=== PATIENT | male | born 1985 | race Caucasian/White ===

== ENCOUNTER 2016-05-29 08:44 | Inpatient (IN) | payer OTHER ==
[2016-05-14 15:04] VITALS: BMI 26.0
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
[~2016-05-29] VITALS: Ht 182.9 cm; Wt 86.4 kg
[2016-05-29] VITALS (7 sets, daily range): BP systolic 99–137; BP diastolic 62–93; PULSE 63–71; TEMP 36.3–36.8; O2SAT 97–100; Ht 182.9 cm; Wt 86.4 kg
[~2016-05-29 08:44] MED LIST: AMLO-110 PO; BUPIVACAINE 0.25% 30 ML VIAL ONE; CALC500C70 PO; FENTANYL CITRATE INJ 50 MCG/1 ML 2 ML VIAL ONE; LACTATED RINGER'S 1000ML 1,000 ML IV SCH; LIDOCAINE HCL 2% 2 ML VIAL (20MG/ML) ONE; MIDAZOLAM HCL 1 MG/ML 2ML VIAL ONE; ONDANSETRON INJ 2 MG/ML 2 ML VIAL ONE; PROPOFOL IV EMULSION 10 MG/ML 20 ML VIAL IV ONE
[2016-05-29] MEDS ORDERED: CEFAZOLIN IV 2,000 MG/60 ML D5W IV ONE (11:15)
[2016-05-29] MEDS ORDERED: NURSING VERBAL MED ORDER ONE (11:25)
--- NOTE | 2016-05-29 11:29 | History & Physical Bridge Note ---
H&P Re-Evaluation Bridge Note: I have examined the patient, reviewed the History & Physical and in the interval since the performance of the History & Physical I have noted the following changes of clinical significance: No changes noted
[2016-05-29] MEDS ORDERED: EpHEDrine SULFATE INJ 50 MG/ML AMP IV PRN (11:30)
[2016-05-29] MEDS ORDERED: ONDANSETRON INJ 2 MG/ML 2 ML VIAL IV PRN ×2 (11:30→15:00)
[2016-05-29] MEDS ORDERED: ATROPINE SULFATE 0.1 MG/ML 5ML SYR IV PRN (11:30)
[2016-05-29] MEDS ORDERED: EpHEDrine SULFATE 50MG/5ML SYR ONE (12:03)
[2016-05-29] MEDS ORDERED: PROPOFOL IV EMULSION 10 MG/ML 20 ML VIAL IV ONE (12:03)
[2016-05-29] MEDS ORDERED: FENTANYL CITRATE INJ 50 MCG/1 ML 2 ML VIAL ONE (12:37)
[2016-05-29] MEDS ORDERED: BACITRACIN 50,000 UNITS IR ONE (13:29)
[2016-05-29] MEDS: HYDROmorphone INJ 1 MG/ML SYR IV PRN ×6 (14:32→15:01)
--- NOTE | 2016-05-29 14:46 | [facility] Post Operative Brief Note ---
Immediate Operative Summary Operative Date May 29, 2016. Pre-Operative Diagnosis Left lower extremity contractures, both at the left knee and the left ankle, and poor circulation in left lower extremity distally, post-ischemic syndrome lower leg, Foot Drop Post-Operative Diagnosis Left lower extremity contractures, both at the left knee and the left ankle, and poor circulation in left lower extremity distally, post-ischemic syndrome lower leg, Foot Drop Procedure(s) Performed Left Knee Below Knee Amputation; Manipulation Under Anesthesia Left Knee Surgeon Dr. Dima Moreno Director Energy Surgeon(s) Esteban Johnson PA-C Estimated Blood Loss 25ml Findings See Dict Specimens A: Left lower leg Drains HV x 1 Anesthesia GLMA w/ femoral nerve block Complication(s) None Disposition Recovery Room / PACU
[2016-05-29] MEDS ORDERED: ACETAMINOPHEN 325 MG TAB PO PRN (15:00)
[2016-05-29] MEDS ORDERED: MAGNESIUM HYDROXIDE SUSP 30 ML UDC PO PRN (15:00)
[2016-05-29] MEDS ORDERED: ALUMINUM/MAGNESIUM/SIMETH (MAALOX MAX) 30 ML UDC PO PRN (15:00)
[2016-05-29] MEDS ORDERED: ZOLPIDEM TARTRATE 5 MG TAB PO PRN (15:00)
--- NOTE | 2016-05-29 15:15 | Anesthesiology Progress Note ---
Anesthesia Post Op Note Date & Time May 29, 2016 at 15:15 Vital Signs Pain Intensity: 6 Vital Signs Past 12 Hours Date Time Temp Pulse Resp B/P Pulse Ox O2 Delivery O2 Flow Rate FiO2 05/29/16 14:56 92 16 100 05/29/16 14:56 89 16 05/29/16 14:51 85 12 05/29/16 14:51 86 12 100 05/29/16 14:48 144/98 05/29/16 14:46 88 12 05/29/16 14:46 89 12 100 05/29/16 14:43 133/83 05/29/16 14:41 87 10 05/29/16 14:41 85 10 100 05/29/16 14:38 137/94 05/29/16 14:36 84 10 05/29/16 14:36 85 10 100 05/29/16 14:33 131/95 05/29/16 14:31 88 13 05/29/16 14:31 91 13 100 05/29/16 14:28 122/79 05/29/16 14:26 84 13 100 05/29/16 14:26 89 13 05/29/16 14:26 36.4 88 14 130/87 100 Mask 10 05/29/16 09:22 36.5 65 20 111/76 97 Room Air Notes Mental Status: alert / awake / arousable, participated in evaluation Pt Amnestic to Procedure: Yes Nausea / Vomiting: adequately controlled Pain: adequately controlled Airway Patency, RR, SpO2: stable & adequate BP & HR: stable & adequate Hydration State: stable & adequate Anesthetic Complications: no major complications apparent
[2016-05-29] MEDS: D5W AND 1/2NSS + 20MEQ KCL 1,000 ML IV SCH (16:22)
[2016-05-29] MEDS: KETOROLAC TROMETHAMINE 30 MG/ML VIAL IV. SCH ×2 (16:22→21:47)
[2016-05-29] MEDS ORDERED: INFLUENZA ADMINISTRATION CHARGE ONE (17:00)
[2016-05-29] MEDS ORDERED: INFLUENZA VIRUS QUAD VACCINE 0.5 ML SYR IM. ONE (17:00)
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
[2016-05-29] MEDS: CEFAZOLIN IV 2,000 MG in DEXTROSE 5% 50ML 50 ML IV SCH (19:51)
[2016-05-29] MEDS: OXYCODONE HCL IR 5 MG TAB (IMMEDIATE RELEASE) PO PRN (20:05)
[2016-05-29] MEDS: PREGABALIN 75 MG CAP PO SCH (20:55)
[2016-05-29] MEDS: DOCUSATE SODIUM 100 MG CAP PO SCH (20:55)
[2016-05-30] MEDS: D5W AND 1/2NSS + 20MEQ KCL 1,000 ML IV SCH ×3 (01:55→21:28)
[2016-05-30] MEDS: OXYCODONE HCL IR 5 MG TAB (IMMEDIATE RELEASE) PO PRN ×5 (01:56→21:27)
[2016-05-30 03:45] VITALS: BP 95/60; PULSE 78; TEMP 37; O2SAT 94
[2016-05-30] MEDS: CEFAZOLIN IV 2,000 MG in DEXTROSE 5% 50ML 50 ML IV SCH (04:54)
[2016-05-30 06:27] LABS: HEMATOCRIT 42.1 % (42-52); MEAN CELL VOLUME 88.3 fL (80-100); MEAN CORPUSCULAR HEMOGLOBIN 29.8 pg (25-34); MEAN CORPUSCULAR HGB CONC 33.7 g/dl (32-36); MEAN PLATELET VOLUME 10.1 fL (7.4-10.4); PLATELET COUNT 146 K/uL (130-400); RED BLOOD COUNT 4.77 M/uL (4.7-6.1); WHITE BLOOD COUNT 9.93 K/uL (4.8-10.8)
[2016-05-30 07:02] LABS: BUN/CREATININE RATIO 12.9 (10-20); CALCIUM 8.3 mg/dl (8.5-10.1); CREATININE 0.94 mg/dl (0.60-1.40); POTASSIUM 3.8 mmol/L (3.5-5.1)
[2016-05-30 07:15] VITALS: O2SAT 96
[2016-05-30 07:29] VITALS: BP 103/66; PULSE 65; TEMP 37.2; O2SAT 96
[2016-05-30] MEDS: DOCUSATE SODIUM 100 MG CAP PO SCH ×2 (08:53→20:13)
[2016-05-30] MEDS: CALCIUM 600MG + VIT D 400 IU TAB PO SCH (08:53)
[2016-05-30] MEDS: PREGABALIN 75 MG CAP PO SCH ×2 (08:54→20:13)
[2016-05-30] MEDS: MULTIVITAMIN TAB PO SCH (08:54)
[2016-05-30] MEDS: ASPIRIN 81 MG ECTAB PO SCH (08:54)
--- NOTE | 2016-05-30 10:06 | Orthopedic Progress Note ---
Orthopedic Progress Note Date of Service May 30, 2016. Subjective Post OP Day: 1 Reports: feeling well, pain controlled w PO medications, Denies: SOB, calf pain , chest pain, light headedness, nausea / vomiting Objective calves soft nontender, N/V intact, capillary refill less than 2 sec., dressing C /D/I, A&O x3, toes mobile, hemovac drainage (10 ml) Date Time Temp Pulse Resp B/P Pulse Ox O2 Delivery O2 Flow Rate FiO2 05/30/16 07:29 37.2 65 18 103/66 96 Room Air 05/30/16 07:15 96 Room Air 05/30/16 03:45 37.0 78 18 95/60 94 Room Air 05/30/16 00:17 Room Air 05/29/16 23:38 36.4 71 18 99/62 98 Room Air 05/29/16 19:06 36.6 71 16 113/68 97 Room Air 05/29/16 17:30 36.6 69 17 137/93 100 Room Air 05/29/16 16:36 36.3 63 18 115/76 99 Nasal Cannula 2.0 05/29/16 15:58 36.8 68 18 124/77 97 Nasal Cannula 2.0 05/29/16 15:30 Nasal Cannula 2.0 05/29/16 15:30 98 Nasal Cannula 2.0 05/29/16 15:22 83 100 05/29/16 15:22 36.6 05/29/16 15:22 83 05/29/16 15:18 113/70 05/29/16 15:17 76 19 100 05/29/16 15:17 75 19 05/29/16 15:13 119/71 05/29/16 15:12 69 18 100 05/29/16 15:12 69 18 05/29/16 15:08 127/83 05/29/16 15:07 75 20 99 05/29/16 15:07 77 20 05/29/16 15:03 121/81 05/29/16 15:02 82 14 05/29/16 15:02 83 14 100 05/29/16 14:58 131/75 05/29/16 14:57 83 16 134/79 100 05/29/16 14:57 84 16 05/29/16 14:56 92 16 100 05/29/16 14:56 89 16 05/29/16 14:51 85 12 05/29/16 14:51 86 12 100 05/29/16 14:48 144/98 05/29/16 14:46 88 12 05/29/16 14:46 89 12 100 05/29/16 14:43 133/83 05/29/16 14:41 87 10 05/29/16 14:41 85 10 100 05/29/16 14:38 137/94 05/29/16 14:36 84 10 05/29/16 14:36 85 10 100 05/29/16 14:33 131/95 05/29/16 14:31 88 13 05/29/16 14:31 91 13 100 05/29/16 14:28 122/79 05/29/16 14:26 84 13 100 05/29/16 14:26 89 13 05/29/16 14:26 36.4 88 14 130/87 100 Mask 10 Laboratory Results 24 Hours: Test 05/30/16 05:45 Hematocrit 42.1 % Hemoglobin 14.2 g/dL Inhouse Planning Pain Management: PO Tylenol, Oxy IR DVT Prophylaxis: TEDs, SCDs, ASA Discharge Planning Discharge Planning: other (care home) Pain Management: PO Tylenol, Oxy IR DVT Prophylaxis: TEDs, ASA Therapy: Physical Therapy Discharge Planning Notes: Plan for discharge today to care home if able to transfer with crutches
[2016-05-30] MEDS ORDERED: ASPEC81 PO (10:09)
[2016-05-30] MEDS ORDERED: TYL325X PO (10:09)
[2016-05-30] MEDS ORDERED: RXC5 PO (10:09)
[2016-05-30 14:55] VITALS: BP 99/63; PULSE 82; TEMP 37.9; O2SAT 95
[2016-05-30 16:53] VITALS: TEMP 37.6
[2016-05-30] MEDS: MoRPHine SULFATE 4 MG/ML 1 ML CARP\\VIAL IV PRN (20:15)
[2016-05-30 22:57] VITALS: BP 109/62; PULSE 86; TEMP 37; O2SAT 94
[2016-05-31] MEDS: OXYCODONE HCL IR 5 MG TAB (IMMEDIATE RELEASE) PO PRN ×3 (01:43→14:28)
[2016-05-31] MEDS: MoRPHine SULFATE 4 MG/ML 1 ML CARP\\VIAL IV PRN ×2 (04:21→10:16)
[2016-05-31 05:49] LABS: HEMATOCRIT 40.6 % (42-52); MEAN CELL VOLUME 87.9 fL (80-100); MEAN CORPUSCULAR HEMOGLOBIN 29.7 pg (25-34); MEAN CORPUSCULAR HGB CONC 33.7 g/dl (32-36); MEAN PLATELET VOLUME 9.9 fL (7.4-10.4); PLATELET COUNT 148 K/uL (130-400); RED BLOOD COUNT 4.62 M/uL (4.7-6.1)
[2016-05-31 06:19] LABS: BUN/CREATININE RATIO 10.4 (10-20); CALCIUM 8.3 mg/dl (8.5-10.1); CREATININE 0.82 mg/dl (0.60-1.40)
[2016-05-31 07:19] VITALS: BP 122/77; PULSE 81; TEMP 37.6; O2SAT 98
[2016-05-31] MEDS: DOCUSATE SODIUM 100 MG CAP PO SCH (07:43)
[2016-05-31] MEDS: ASPIRIN 81 MG ECTAB PO SCH (07:43)
[2016-05-31] MEDS: CALCIUM 600MG + VIT D 400 IU TAB PO SCH (07:43)
[2016-05-31] MEDS: MULTIVITAMIN TAB PO SCH (07:44)
[2016-05-31] MEDS: PREGABALIN 75 MG CAP PO SCH (07:44)
[2016-05-31] MEDS: D5W AND 1/2NSS + 20MEQ KCL 1,000 ML IV SCH (07:46)
--- NOTE | 2016-05-31 09:03 | Orthopedic Progress Note ---
Orthopedic Progress Note Date of Service May 31, 2016. Subjective Post OP Day: 2 Reports: feeling well, pain controlled w PO medications, Denies: SOB, chest pain , light headedness, nausea / vomiting Objective calves soft nontender, N/V intact, capillary refill less than 2 sec., dressing C /D/I, A&O x3, hemovac drainage Date Time Temp Pulse Resp B/P Pulse Ox O2 Delivery O2 Flow Rate FiO2 05/31/16 07:19 37.6 81 16 122/77 98 Room Air 05/30/16 22:57 37.0 86 16 109/62 94 Room Air 05/30/16 20:15 Room Air 05/30/16 16:53 37.6 05/30/16 16:45 Room Air 05/30/16 14:55 37.9 82 18 99/63 95 Room Air Laboratory Results 24 Hours: Test 05/31/16 05:30 Hematocrit 40.6 % Hemoglobin 13.7 g/dL Assessment & Plan Assessment: s/p left BKA Plan: Discharge pending with Dr. Moreno Inhouse Planning Pain Management: PO Tylenol, Oxy IR DVT Prophylaxis: TEDs, SCDs, ASA Discharge Planning Discharge Planning: other (alf) Pain Management: PO Tylenol, Oxy IR DVT Prophylaxis: TEDs, ASA Therapy: Physical Therapy
--- NOTE | 2016-05-31 09:07 | Discharge Instructions ---
Discharge Instructions Admission Reason for Admission: Left Knee Contracture Discharge Discharge Diagnosis / Problem: Left Below the knee amputation and knee Manipulation under anesthesia Discharge Goals Goal(s): Decrease discomfort, Improve function, Increase independence, Therapeutic intervention Activity Recommendations Activity Limitations: per Instructions/Follow-up section ACTIVITY RECOMMENDATIONS: Limitations: No weight bearing to affected limb at all times. SPECIAL CARE INSTRUCTIONS: * Some drainage onto the dressing is normal and is no cause for alarm. * Some swelling is natural especially after walking. * When resting, keep your leg elevated above the level of your heart. * Call [facility] if you notice: -Increased drainage -Fever over 101 degrees F -Severe constant pain BANDAGE: * Leave bandage/cast in place unless otherwise directed. * Keep bandage/cast dry at all times. FOLLOW UP VISIT WITH DR. HOLLINS If appointment is not already scheduled: Please call [facility] after you get home today to schedule a follow-up appointment for [address] Hollins at . . Current Hospital Diet Patient's current hospital diet: Regular Diet Discharge Diet Recommended Diet: Regular Diet Procedures Procedures Performed: Left Knee Below Knee Amputation; Manipulation Under Anesthesia Left Knee Pending Studies Studies pending at discharge: no Medical Emergencies . Who to Call and When: Medical Emergencies: If at any time you feel your situation is an emergency, please call [phone] immediately. . Non-Emergent Contact Non-Emergency issues call your: Primary Care Provider . "Provider Documentation" section prepared by Ashley Irvin. VTE Core Measure Inpt VTE Proph given/why not?: Other Anticoagulation, T.E.D. Stockings, SCD's
[2016-05-31 12:43] VITALS: BP 122/77; PULSE 81; TEMP 37.6; O2SAT 98
--- NOTE | 2016-06-02 13:16 | Discharge Summary ---
Orthopedic Discharge Summary Admission Date/Reason May 29, 2016 at 09:20 Left Knee Contracture. Discharge Date/Disposition May 31, 2016 Home ([facility]) Diagnosis Principal Diagnosis: s/p compartment syndrome LLE with ischemia LLE left knee flexion contracture Procedure(s) Performed 1. Left below knee amputation. 2. Manipulation under anesthesia of the left knee Medication Reconciliation New Medications: Acetaminophen (Tylenol) 325 Mg Tab 650 MG PO Q6H PRN for PAIN/TEMP GREATER THAN 38 C, #60 TAB Aspirin (Aspirin EC Low Dose) 81 Mg Ectab 81 MG PO DAILY, #30 Oxycodone HCl (Oxycodone HCl) 5 Mg Tab 5-10 MG PO Q4H PRN for Pain, #60 TAB Continued Medications: Calcium/Vitamin D (Os-Emmanuel 500 Plus D) Tab 1 TAB PO QAM, TAB Admission Physical Exam As per Admitting History & Physical. Hospital Course The patient was admitted on 05.29.16 and had a left BKA with MILLER of the left knee. Pain control was the goal for POD #1 and POD #2. On POD #2, the patient was d/c'd back to [facility]. Discharge Instructions Please refer to the electronic Patient Visit Report (Discharge Instructions) for additional information. ACTIVITY RECOMMENDATIONS: Limitations: No weight bearing to affected limb at all times. SPECIAL CARE INSTRUCTIONS: * Some drainage onto the dressing is normal and is no cause for alarm. * Some swelling is natural especially after walking. * When resting, keep your foot elevated above the level of your heart. * Call [facility] if you notice: -Increased drainage -Fever over 101 degrees F -Severe constant pain BANDAGE: * Leave bandage/cast in place unless otherwise directed. * Keep bandage/cast dry at all times. FOLLOW UP VISIT WITH DR. HOLLINS If appointment is not already scheduled: Please call [facility] after you get home today to schedule a follow-up appointment for [address] Hollins at .
== END 2016-05-31 14:44 | DRG 241 ==
LOC: ENRESERVDT → ENRESERVTM → C.ACU 08:44 → C.3E 09:20
PROVIDERS: ADMIT Orthopaedic Surgery Sports Medicine; ATTEND Orthopaedic Surgery Sports Medicine
PROC: 0SNDXZZ Release Left Knee Joint, External Approach (ICD-10-PCS; principal; 2016-05-29 10:30)
PROC: 0Y6J0Z1 Detachment at Left Lower Leg, High, Open Approach (ICD-10-PCS; principal; 2016-05-29 10:30)
DX: I99.8 Other disorder of circulatory system (principal); T79.A22S Traumatic compartment syndrome of left lower extremity, sequela; M24.572 Contracture, left ankle; M24.569 Contracture, unspecified knee; M24.575 Contracture, left foot; M21.372 Foot drop, left foot; Z91.89 Other specified personal risk factors, not elsewhere classified; F17.200 Nicotine dependence, unspecified, uncomplicated; Z79.899 Other long term (current) drug therapy